=== PATIENT | male | born 1990 | race American Indian/Alaskan Native ===

== ENCOUNTER 2020-08-09 17:31 | Emergency (ER) | payer OTHER ==
[2020-08-09 18:57] VITALS: BP 154/97
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
== END 2020-08-09 21:01 | disposition home or self-care (01) ==
LOC: ED 17:31
DX: S39.012A Strain of muscle, fascia and tendon of lower back, initial encounter (principal); V89.2XXA Person injured in unspecified motor-vehicle accident, traffic, initial encounter; Y93.89 Activity, other specified; Y92.410 Unspecified street and highway as the place of occurrence of the external cause; Y99.8 Other external cause status
CPT/HCPCS: 72100; 99283